=== PATIENT | male | born 1995 | race Caucasian/White ===

== ENCOUNTER 2022-05-15 11:18 | Emergency (ER) | payer OTHER, MEDICAID ==
[~2022-05-15] VITALS: Ht 172.7 cm; Wt 99.8 kg
[2022-05-15 11:19] VITALS: BP 164/86
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
[2022-05-15] MEDS ORDERED: KETOROLAC 30 MG/ML VIAL ONE (11:29)
[2022-05-15] MEDS ORDERED: KETOROLAC 30 MG/ML VIAL IM ONE (11:30)
[2022-05-15 13:47] VITALS: BP 147/73
--- NOTE | 2022-05-15 14:13 | NUR ---
VOLAR SPLINT APPLIED TO L WRIST. + CMS CECI WRAP X 1
[2022-05-15] MEDS ORDERED: ACET-8386 PO (14:18)
[2022-05-15] MEDS ORDERED: IBUP-2213 PO (14:18)
--- NOTE | 2022-05-15 14:30 | NUR ---
Patient discharged with v/s stable. Written and verbal after care instructions given and explained. Patient verbalized understanding. Ambulatory with steady gait. All questions addressed prior to discharge. Advised to follow up with PMD.
== END 2022-05-15 14:32 | disposition home or self-care (01) ==
LOC: MED 11:18
DX: S52.615A Nondisplaced fracture of left ulna styloid process, initial encounter for closed fracture (principal); S20.20XA Contusion of thorax, unspecified, initial encounter; M79.10 Myalgia, unspecified site; R03.0 Elevated blood-pressure reading, without diagnosis of hypertension; Z79.899 Other long term (current) drug therapy; V29.99XA Rider (driver) (passenger) of other motorcycle injured in unspecified traffic accident, initial encounter; Y93.55 Activity, bike riding; Y92.89 Other specified places as the place of occurrence of the external cause; Y99.8 Other external cause status
CPT/HCPCS: 29125; 71101; 73110; 73130; 96372; 99284; J1885